=== PATIENT | female | born 1935 | race Caucasian/White ===

== ENCOUNTER 2017-03-10 11:56 | Day surgery (SDC) | payer OTHER ==
[~2017-03-10] VITALS: Ht 154.9 cm; Wt 57.7 kg
[2017-03-10 13:02] VITALS: Ht 154.9 cm; Wt 57.7 kg
[2017-03-10] MEDS ORDERED: METF500T PO (13:09)
[2017-03-10] MEDS ORDERED: BIMA2.5D BOTH EYES (13:09)
[2017-03-10] MEDS ORDERED: CARB/LEVO PO (13:09)
[2017-03-10] MEDS ORDERED: CARV25TA79 PO (13:09)
[2017-03-10] MEDS ORDERED: SITA50TA2 PO (13:09)
[2017-03-10] MEDS ORDERED: HYDR25TA6 PO (13:09)
[2017-03-10] MEDS ORDERED: LISI40TA9 PO (13:09)
[2017-03-10] MEDS ORDERED: GATI3.5D2 OP (13:09)
[2017-03-10] MEDS ORDERED: OFLO5DRO3 OP (13:09)
[2017-03-10] MEDS ORDERED: MEMA5TAB PO (13:09)
[2017-03-10] MEDS ORDERED: AMLO-147 PO (13:09)
[2017-03-10] MEDS ORDERED: LIDOCAINE 4% SOLUTION 50 ML BTL ONE (13:20)
[2017-03-10 13:43] VITALS: BP 186/75; PULSE 96; RESP 12
[2017-03-10] MEDS ORDERED: FENTAnyl 50 MCG/ML VIAL ONE (14:05)
[2017-03-10] MEDS ORDERED: MIDAZOLAM 1 MG/ML 2 ML INJ ONE (14:06)
--- NOTE | 2017-03-10 14:06 | OPPN ---
Date/Time of Note Date/Time of Note DATE: 03/10/17 TIME: 14:04 Operative Report Preoperative Diagnosis Anemia elevated carcinoembryonic antigen Postoperative Diagnosis Few gastric erosions and antrum Operation/Procedure Performed EGD random gastric biopsy Surgeon see signature line ward assistant None Anesthesia: moderate sedation (2 mg IV Versed 25 mcg of fentanyl moderate sedation total time 15 minute) Estimated blood loss: none Transfusion Required none Specimen Random gastric biopsy Grafts/Implants none Complications none INDER PICHARDO MD Mar 10, 2017 14:06
--- NOTE | 2017-03-11 05:41 | GILP ---
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 The patient was advised to go for colonoscopy, but she is afraid as she had bowel perforation in the past, I believe. PROCEDURE DONE: Esophagogastroduodenoscopy and biopsy, random of the stomach. POSTOPERATIVE DIAGNOSIS: Few gastric erosions, mostly in the antrum, otherwise negative study. DESCRIPTION OF PROCEDURE: The patient was put in left lateral decubitus after obtaining informed co nsent. Posterior pharynx anesthetized with 4% Xylocaine and 2 mg of IV Versed and 25 mcg of fentany l given. Very carefully I advanced Olympus video upper endoscope into the esophagus, stomach and du odenum. Esophagus in its entire length is normal. In the stomach some erosions noted in the antrum . Photography done. Random biopsy of the stomach done to rule out H. pylori. Pyloric channel easi ly entered. Duodenal bulb and first and second part normal. Then the scope was slowly withdrawn ba ck, reexamined the stomach including retroflexion, this was again unremarkable. Upon removal of sco pe, patient had no complication. FINAL IMPRESSION: Few erosions in the antrum, otherwise normal. Because of elevated CEA I still recommend she go for colonoscopy and she has gone for [facility]. This will be reported to them and she will follow up with surgical consult as outpatient for a l arge ventral hernia with small bowel in it and depending on the results of the H. pylori, we will tr eat her so if it is positive. Dictated By: INDER MCCAULEY Conf#: [id number] DID#: [id number] CC: Fredis Cisse;*EndCC*
== END 2017-03-10 20:59 | disposition home or self-care (01) ==
LOC: GIL 11:56
PROVIDERS: ATTEND Internal Medicine
DX: K29.70 Gastritis, unspecified, without bleeding (principal)
CPT/HCPCS: 43239; 82962; 88305; 88312; J2250; J3010

== ENCOUNTER → 2017-04-04 | Outpatient (CLI) | END | disposition home or self-care (01) ==